=== PATIENT | female | born 1965 | race Caucasian/White ===

== ENCOUNTER 2017-06-05 07:25 | Day surgery (SDC) | payer OTHER ==
[~2017-06-05] VITALS: Ht 165.1 cm; Wt 90.5 kg
[~2017-06-05 07:25] MED LIST: ARMOUR THYROID90 MG PO; LOSARTAN-HCTZ1 EACH PO; RHINOCORT ALL8.43 ML BOTH NARES; VENTOLIN HFA18 GM IH
[2017-06-05 08:17] VITALS: BP 163/96
[2017-06-05 14:12] VITALS: BP 145/75
[2017-06-05 15:15] VITALS: BP 136/66
[2017-06-05 19:01] VITALS: BP 132/67
[2017-06-05 20:09] LABS: POINT-OF-CARE METER ID UU14314084
[2017-06-05 23:54] VITALS: BP 136/63
[2017-06-06 03:30] VITALS: BP 105/56
[2017-06-06 06:53] LABS: EOSINOPHIL (%) 0 % (0-5); HEMATOCRIT 31.1 % (36.0-46.0); IMMATURE GRANULOCYTE (%) 0.5 % (0.0-0.7); IMMATURE GRANULOCYTE COUNT 0.1 K/uL; INSTRUMENT ABS NEUTROPHIL CT 9.9 K/uL; LYMPHOCYTE COUNT 1.8 K/uL (1.0-2.8); MCH 30.3 PG (29.0-34.0); MCHC 34.1 G/DL (30.0-36.0); MCV 88.9 FL (83-99); MEAN PLAT.VOLUME 10.1 uM^3 (9.5-12.4); MONOCYTE (%) 9.1 % (3-12); MONOCYTE COUNT 1.2 K/uL (0-0.8); NEUTROPHIL (%) 76.4 % (45-76); NEUTROPHIL COUNT 9.9 K/uL (1.8-6.4); PLATELET COUNT 275 K/uL (156-360); RBC DIS.WIDTH-CV 12.7 % (11.8-14.6); RBC DIS.WIDTH-SD 41.1 % (39-53); WHITE BLOOD COUNT 12.9 K/uL (4.1-10.2)
[2017-06-06] MEDS ORDERED: DILAUDID2 MG PO (08:05)
[2017-06-06] MEDS ORDERED: MOTRIN800 MG PO (08:05)
[2017-06-06 08:20] VITALS: BP 136/73
[2017-06-06 08:24] LABS: POINT-OF-CARE METER ID UU14208750
[2017-06-06] MEDS ORDERED: ZENPEP DR 20,01 EACH PO (09:44)
[2017-06-06 11:20] VITALS: BP 138/79
[2017-06-06 11:35] LABS: POINT-OF-CARE METER ID UU14208750
[2017-06-06] MEDS ORDERED: CIPRO500 MG PO (15:33)
[2017-06-06] MEDS ORDERED: FLAGYL500 MG PO (15:35)
== END 2017-06-06 16:33 | disposition home or self-care (01) ==
LOC: SDC 07:25 → 2SOUTH 13:29 → 2EAST 13:29 → 2SOUTH 13:29 → ENRESERV 13:30 → 2EAST 14:01 → SDC 15:59 → 2EAST 06-06 16:33
PROVIDERS: Obstetrics & Gynecology
PROC: 0UT20ZZ Resection of Bilateral Ovaries, Open Approach (ICD-10-PCS; principal; 2017-06-05)
PROC: 0DQN0ZZ Repair Sigmoid Colon, Open Approach (ICD-10-PCS; principal; 2017-06-05)
PROC: 0TJB8ZZ Inspection of Bladder, Via Natural or Artificial Opening Endoscopic (ICD-10-PCS; principal; 2017-06-05)
PROC: 0UT70ZZ Resection of Bilateral Fallopian Tubes, Open Approach (ICD-10-PCS; principal; 2017-06-05)
PROC: 0DQV0ZZ Repair Mesentery, Open Approach (ICD-10-PCS; principal; 2017-06-05)
PROC: 0DNV0ZZ Release Mesentery, Open Approach (ICD-10-PCS; principal; 2017-06-05)
DX: D27.1 Benign neoplasm of left ovary (principal); D27.0 Benign neoplasm of right ovary; N73.6 Female pelvic peritoneal adhesions (postinfective); K57.32 Diverticulitis of large intestine without perforation or abscess without bleeding; Z53.31 Laparoscopic surgical procedure converted to open procedure; Y83.8 Other surgical procedures as the cause of abnormal reaction of the patient, or of later complication, without mention of misadventure at the time of the procedure; K66.0 Peritoneal adhesions (postprocedural) (postinfection); E03.9 Hypothyroidism, unspecified; I10 Essential (primary) hypertension; M79.7 Fibromyalgia; J45.909 Unspecified asthma, uncomplicated; R73.03 Prediabetes; R94.31 Abnormal electrocardiogram [ECG] [EKG]; Z88.0 Allergy status to penicillin; Z88.2 Allergy status to sulfonamides
CPT/HCPCS: 82948; 85025; 88305; G0378; J0330; J1100; J1170; J1580; J1815; J1885; J2250; J2405; J2710; J2765; J3010; J7050; J7120

== ENCOUNTER → 2017-07-18 | Outpatient (CLI) | payer OTHER ==
[~2017-07-18] MED LIST changes: +CIPRO500 MG PO; +DILAUDID2 MG PO; +FLAGYL500 MG PO; +MOTRIN800 MG PO; +ZENPEP DR 20,01 EACH PO
== END | disposition home or self-care (01) ==
LOC: NUC 07-17 13:00
DX: R10.13 Epigastric pain (principal); R14.0 Abdominal distension (gaseous)
CPT/HCPCS: 78226; A9537